=== PATIENT | female | born 2005 | race African-American/Black ===

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

== ENCOUNTER 2024-10-30 14:30 | Outpatient (REF) | payer OTHER, SELFPAY ==
[2024-10-31 11:34] LABS: Bacterial Vaginosis PCR NEGATIVE (Negative); Candida Group PCR DETECTED (Not Detect); Candida glab krusei PCR NOT DETECTED (Not Detect); Trichomonas vaginalis PCR NOT DETECTED (Not Detect)
[2024-10-31 12:19] LABS: CT PCR NOT DETECTED (Not Detect.); NG PCR NOT DETECTED (Not Detect.)
== END 2024-10-30 14:31 | disposition home or self-care (01) ==
LOC: HO.LNP 14:30
PROVIDERS: Visit Provider Advanced Practice Midwife
DX: Z01.419 Encounter for gynecological examination (general) (routine) without abnormal findings (principal); Z20.2 Contact with and (suspected) exposure to infections with a predominantly sexual mode of transmission
CPT/HCPCS: 81515; 87491; 87591; 99395; 99459

== ENCOUNTER 2024-10-30 14:30 | Outpatient (AMB) | payer OTHER, SELFPAY ==
--- NOTE | 2024-10-30 14:30 | MHC.OFFVIS ---
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 Has a Nexplanon device, due for an exchange in February. Currently is sexually active. She denies vaginal itching and irritation. STI screening offered; she accepts, declines blood work. She tries to eat healthy and stays active with exercise. Denies family history of breast, ovarian or colon cancer. [facility] Medical History Postcoital bleeding Irregular menses No known problems Surgical History No pertinent past surgical history Family History Mother No problems noted. Father Asthma Maternal Grandfather Diabetes Maternal Grandmother Cardiac disease High blood pressure Sister No problems noted. Brother Asthma Social History (Updated 10/30/24 @ 14:58 by Eugenia Doty CNM) Household Members: Family Both parents involved: Yes Caregiver staying overnight: No Housing: Apartment Are you a primary child care to a significant other at home: No Do you presently have visiting nurse or other home services: No 75 years or older and lives alone: No Alcohol intake: current Alcohol intake frequency: holidays/special occasions only Patient Tobacco Use Status: Never used Tobacco Current occupation: [employer] Sexual orientation: Straight/Heterosexual Gender identity: Female Cognitive needs: No Hearing needs: No Vision needs: No Female Reproductive History Menstrual Age of Menarche: 10 control method: implanted (Nexplanon 03/07/22) Total pregnancies: 0 Review of Systems Const All systems reviewed & are unremarkable except as noted in HPI and below Reports as per HPI Eyes Reports no additional complaints ENT Reports no additional complaints Card Reports no additional complaints Resp Reports no additional complaints GI Reports as per HPI and Reports no additional complaints Reports as per HPI Musc Reports no additional complaints Skin/Breast Reports as per HPI Neuro Reports no additional complaints Psych Reports no additional complaints Endo Reports no additional complaints Tereso/Lymph Reports no additional complaints Aller/Immun Reports no additional complaints Physical Exam Vital Signs: Last Vital Signs BP 90/60 10/30/24 14:31 BMI result Body Mass Index 19.6 Const General: cooperative, healthy appearing, no acute distress, well developed and alert Orientation/consciousness: patient oriented x3 HEENT Head: Yes normal to inspection Eyes General: appearance normal, both eyes and all related structures Neck Neck: Yes normal visual inspection Thyroid: Thyroid normal Chest Chest palpation & inspection: normal inspection of the chest and other (no puckering, dimpling, peau de orange, retraction, discharge, masses) Breast/axilla inspection: normal inspection of the breasts Breast/axilla palpation: normal palpation of the breasts Resp Effort & Inspection: normal respiratory effort GI Inspection: Yes normal to inspection Palpation (GI): Soft to palpation Rectal Exam - Female: deferred General: Yes bladder normal to palpation External Female Exam: normal external appearance and normal appearance of the urethra Speculum Exam - Vagina: normal appearance of the vagina, normal palpation and normal vaginal discharge Speculum Exam - Cervix: normal appearance of the cervix and normal palpation Bimanual exam- vagina & uterus: normal bimanual exam, normal palpation, uterine size normal, bladder normal to palpation, normal palpation and non-tender Bimanual Exam- Adnexa, other: no masses Skin General skin exam: no rashes or lesions noted Rashes: no rashes Neuro General: patient oriented x3 Cognition (Neuro): normal cognition Extrem General: Yes normal to inspection Psych Attitude: cooperative Thought process: Normal thought process present Assessment & Plan Assessment & Plan (1) Encounter for well woman exam with routine gynecological exam: Code(s): Z01.419 - Encounter for gynecological examination (general) (routine) without abnormal findings Category: Medical Plan Discussed: Current recommendations for pap smears per ASCCP guidelines. Breast awareness and periodic breast exams. Maintain a healthy lifestyle including a well balanced diet and routine exercise. Use condoms for STI prevention. GC chlamydia and BV panel obtained. Sign for prior authorization for another Nexplanon, and scheduled exchange appointment. Patient verbalizes understanding and agrees to the plan of care. She was given opportunity to ask questions and all questions were answered to the best of my ability. RTO in one year for annual multiple spindle screw machine operator examination. This note is constructed using voice recognition software. While every effort has been made to ensure accuracy, cloth winding supervisor errors may have been included. Coding Level of Care Code Est Pt Prev Care 18-39y(75945) Diagnoses Encounter for well woman exam with routine gynecological exam Z01.419
[2024-10-30 14:31] VITALS: BP 90/60; BMI 19.6
== END 2024-10-30 15:00 | disposition home or self-care (01) ==
PROVIDERS: Visit Provider Advanced Practice Midwife
DX: Z01.419 Encounter for gynecological examination (general) (routine) without abnormal findings (principal)
CPT/HCPCS: 99395; 99459

== ENCOUNTER 2024-10-30 15:07 | Outpatient (REF) | payer OTHER, SELFPAY | END 2024-10-30 15:08 | disposition home or self-care (01) | LOC: HO.LAB 15:07 | PROVIDERS: Visit Provider Advanced Practice Midwife | DX: Z13.89 Encounter for screening for other disorder (principal) ==

== ENCOUNTER 2025-03-04 09:53 | Outpatient (AMB) | payer OTHER, SELFPAY ==
--- NOTE | 2025-03-04 09:59 | MHC.OFFVIS ---
Vital Signs 03/04/25 10:00 Height 5 ft 2 in Weight 112 lb BMI 20.5 BP 110/70 Intake Visit Reasons: Nexplanon exchange Docent Coordinator: Docent Coordinator Present (Claire) Accompanied by: Significant Other Allergies Penicillins [PENICILLINS] Allergy (Unknown, Verified 03/04/25 09:59) RASH Is last menstrual period known: Yes HPI Comments Details: Patient is here today for a Nexplanon exchange accompanied by her partner, Stevie. She is on time for the exchange, but has reconsidered and wants to not have the Nexplanon placed as she prefers to see how her body responds without hormones. She is also concerned if she has any infertility issues. [facility] Medical History (Updated 03/04/25 @ 10:34 by Eugenia Doty CNM) Nexplanon removal Postcoital bleeding Irregular menses No known problems Surgical History No pertinent past surgical history Family History Mother No problems noted. Father Asthma Maternal Grandfather Diabetes Maternal Grandmother Cardiac disease High blood pressure Sister No problems noted. Brother Asthma Social History (Updated 10/30/24 @ 14:58 by Eugenia Doty CNM) Household Members: Family Both parents involved: Yes Caregiver staying overnight: No Housing: Apartment Are you a primary home health care physician to a significant other at home: No Do you presently have visiting nurse or other home services: No 75 years or older and lives alone: No Alcohol intake: current Alcohol intake frequency: holidays/special occasions only Patient Tobacco Use Status: Never used Tobacco Current occupation: [employer] Sexual orientation: Straight/Heterosexual Gender identity: Female Cognitive needs: No Hearing needs: No Vision needs: No Female Reproductive History Menstrual Age of Menarche: 10 Review of Systems Const All systems reviewed & are unremarkable except as noted in HPI and below Endo Reports no additional complaints Physical Exam Vital Signs: Last Vital Signs BP 110/70 03/04/25 10:00 BMI result Body Mass Index 20.5 Const General: cooperative, healthy appearing and no acute distress Extrem Other: Implant palpable left upper inner arm Psych Appearance: well kempt Attitude: cooperative Thought process: Normal thought process present Office Procedures Contraception Insert/Removal Details Details: Nexplanon Removal Procedure Nexplanon Removal Counseling: The patient was counseled regarding Nexplanon removal procedure risks for: pain, infection bleeding, bruising , swelling scarring, injury to nerves, blood vessels, and surrounding tissue. ?All questions were answered. ?The patient has signed the consent form and desires to proceed with the procedure. Nexplanon Removal Procedure: The patient was placed in a supine position with her non dominant left hand resting under her head. The insertion site was located: 8-10cm from the medial epicondyle notch of the humerus, posterior to the sulcus, between the triceps and biceps muscle. The area of the ?implant was identified and the distal tip located. This area was cleansed with an alcohol prep and 1 ml of 1% Lidocaine on a 25 gauge needle and syringe was utilized for adequate anesthesia to the insertion site. After ascertaining adequate anesthesia, the area was prepped with Betadine solution. The skin over the distal tip was incised with a #11 blade scalpel and the capsule was located and entered freeing the implant from the canal. The implant was removed with a gentle tug using a mosquito clamp and removed intact. Direct pressure was applied to the insertion site for hemostasis, minimal bleeding was observed. Steri strips, Tegaderm covering, gauze pads, and Kyle wrap dressing were secured with paper tape. Nexplanon Removal Post Care Instructions: You may expect mild tenderness, swelling, and bruising from the area. If no allergies, you may use a mild over the counter analgesic like Tylenol or Advil (follow the manufacturers recommendations on dosing and frequency of use). Call the office if any symptoms and including: fever (over 100.4), flu like symptoms, signs of infection-redness, pus drainage, pain (beyond usual healing). Keep the pressure dressing on and clean and dry for 24 hours, then remove it. You may take the steri strips and Tegaderm off in 5-7 days, or sooner if peeling off on its own. The patient tolerated the procedure well and left the office in good condition. This note is constructed using voice recognition software. ?While every effort has been made to ensure accuracy, operations asst errors may have been included. ? 64119 - Removal Results AMB Test Urine AMB Test Urine Negative Last Edit by CESAR Asif on 03/04/25 10:04 Results Reviewed Results Reviewed: Laboratory Last Values [facility] Negative 03/04/25 10:04 Assessment & Plan Assessment & Plan (1) Nexplanon removal: Code(s): Z30.46 - Encounter for surveillance of implantable subdermal contraceptive Category: Medical Plan See procedure notes. Counseled: regarding contraception options, and reviewed [facility] efficacy chart. She prefers to use condoms, and we will monitor her cycle return. Advised to use a cycle tianna. If any late or missed menses to do a home test than follow up in the office. Return to the office if desires to have Nexplanon replaced or another alternative control option. The patient expressed understanding and agreement with the plan of care. All of her questions and concerns were addressed to the best of my ability. This note is constructed using voice recognition software. While every effort has been made to ensure accuracy, operations asst errors may have been included. Orders: Orders AMB HCG Urine Test Today Z32.02 - Encounter for test, result negative Coding Level of Care Code Procedure Only Diagnoses Nexplanon removal Z30.46 CPT Codes Details - Contraception: 73145 - Removal ([id number])
[2025-03-04 10:00] VITALS: BP 110/70; BMI 20.5
--- OUTSIDE RECORDS SUMMARY | 2025-03-04 10:51 | XMS_ITS | Clinical Summary ---
Author Organization [employer] Address [address] [place] [address] Care Team Providers Care Coal Chemist Name Role Phone Unavailable Primary Care Provider Unavailabl e Allergies Active Allergy Reactions Criticality Noted Date Comments Penicillins 12/08/2024 Medications No known medications Encounters Date Type Department Care Team Description 12/08/2024 1:00 PM EST Office Visit [facility] [address] [place] [address] Ana Arreaga, DDS Tooth impaction (Primary Dx) from Last 3 Months Social History Tobacco Use Types Packs/Day Years Used Date Smoking Tobacco: Never Passive Smoke Exposure: Never Smokeless Tobacco: Never Tobacco Cessation:Counseling Given: No Alcohol Use Standard Drinks/Week Comments Never 0 (1 standard drink = 0.6 oz pur e alcohol) Comments Unknown Sex and Gender Information Value Date Recorded Sex Assigned at Female 12/08/2024 10:03 AM EST Legal Sex Female 10:01 AM EST Gender Identity Female 12/08/2024 10:03 AM EST Sexual Orientation Straight 12/08/2024 10 :03 AM EST Last Filed Vital Signs Vital Sign Reading Time Taken Comments Blood Pressure 123/80 12/08/2024 1:17 PM EST Pulse - - Temperature - - Respiratory Rate - - Oxygen Saturation - - Inhaled Oxygen Concentration - - Weight - - Height - - Body Mass Index - - Plan of Treatment Health Maintenance Due Date Last Done Comments Chlamydia and Gonorrhea Screening 2004 Dental Oral Exam 2004 Dental Prophylaxis 2004 Dental X-Ray: Bitewings 2004 Depression Screening 2004 HIV Screening 2004 SDOH Screening 2004 Alcohol/Substance Use Screening 2016 Family Planning (PISQ) 2019 HPV Vaccines (1 - 3-dose series) 2019 Hepatitis C Screening 2022 DTaP/Tdap/Td Vaccines (1 - Tdap) 2023 Hepatitis B Vaccines (1 of 3 - 19+ 3-dose series) 2023 COVID-19 Vaccine (1 - 2023-2 5 season) 2024 Influenza Vaccine (#1) 2024 Tobacco Screening 12/08/2025 12/08/2024 Dental X-Ray: Full Mouth 12/09/2027 12/08/2024 Zoster Vaccines (1 of 2) 2054 RSV Patients and Pa tients Aged 60 years or older (1 - 1-dose 75+ series) 2079 HIB Vaccines Aged Out No longer eligi ble based on patient's age to complete this topic Hepatitis A Vaccines Aged Out No long er eligible based on patient's age to complete this topic IPV Vaccines Aged Out No longer eligi ble based on patient's age to complete this topic Meningococcal Vaccine Aged Out No ritika shivani eligible based on patient's age to complete this topic Pneumococcal Vaccine: Pediat rics (0 to 5 Years) and At-Risk Patients (6 to 49) Years) Aged Out No longer elig ible based on patient's age to complete this topic RSV under 20 months Aged Out No longe r eligible based on patient's age to complete this topic Rotavirus Vaccines Aged Out No longer eligible based on patient's age to complete this topic Procedures Procedure Name Priority Date/Time Associated Diagnosis Comments CASE PRESENTATION, DETAILED AND EXTENSIVE TREATMENT PLANNING Routine 12/08/2024 1:00 PM EST Tooth impaction PANORAMIC RADIOGRAPHIC IMAGE Routine 12/08/2024 1:00 PM EST Tooth impaction PALLIATIVE (EMERGENCY) TREATMENT OF DENTAL PAIN - MINOR PROCEDURE Routine 12/08/2024 1:00 PM EST Tooth impaction from Last 3 Months Insurance DENTAL - HSN PARTIAL (MEDICAID)
== END 2025-03-04 12:47 | disposition home or self-care (01) ==
LOC: HO.HWS 09:53
PROVIDERS: Visit Provider Advanced Practice Midwife
DX: Z30.46 Encounter for surveillance of implantable subdermal contraceptive (principal); Z32.02 Encounter for pregnancy test, result negative
CPT/HCPCS: 11982

== ENCOUNTER → 2025-03-04 09:53 | Outpatient (BNVA) | payer OTHER, SELFPAY | PROVIDERS: Visit Provider Advanced Practice Midwife | DX: Z30.46 Encounter for surveillance of implantable subdermal contraceptive (principal) | CPT/HCPCS: 11982; 81025 ==

== ENCOUNTER 2025-04-19 18:33 | Emergency (ER) | payer SELFPAY ==
--- NOTE | ~2025-04-19 | XR_ITS ---
CLINICAL HISTORY: Pneumonia? 1 view chest x-ray Comparison: None provided Findings: No consolidation or effusion. Heart size is normal. No acute fracture. IMPRESSION: 1. No acute findings. This document has been electronically signed by: Juan A Chandler MD on 04/19/2025 19:56:48
[2025-04-19 19:20] VITALS: BP 115/64; PULSE 85; RESP 18; TEMP 37.3; O2SAT 99; BMI 20.3
--- NOTE | 2025-04-19 19:24 | ED.GENADULT ---
HPI - General Adult General Chief complaint: Upper Respiratory Symptoms Stated complaint: cough,body aches headache Time Seen by Provider: 04/19/25 19:24 Source: patient Mode of arrival: ambulatory Limitations: no limitations History of Present Illness ED Provider: Abelardo Reddy HPI narrative: 19-year-old female presents to the ED for cough, bodyaches, sore throat, and stuffy nose and headache. Patient denies any chest pain, shortness of breath, weakness, or dizziness. Related Data Home Medications ?Medication ?Instructions ?Recorded ?Confirmed etonogestrel 68 mg subdermal subdermal DAILY 04/11/22 11/23/22 implant (Nexplanon) Previous Rx's ?Medication ?Instructions ?Recorded acetaminophen 500 mg tablet 500 mg PO Q6H PRN fever or pain 07/16/23 (Tylenol Extra Strength) #14 tabs benzonatate 200 mg capsule 200 mg PO TID PRN cough #15 caps 04/19/25 Allergies Allergy/AdvReac Type Severity Reaction Status Date / Time Penicillins (PENICILLINS) Allergy Unknown RASH Verified 04/19/25 19:23 Review of Systems Review of Systems: sore throat, stuffy nose, bodyaches, congesiton Yes all other systems are reviewed and are negative [facility] Past Medical History Medical History (Updated 04/20/25 @ 00:01 by Pito Ring) Nexplanon removal Postcoital bleeding Irregular menses No known problems Surgical History No pertinent past surgical history Family History Family History Mother No problems noted. Father Asthma Maternal Grandfather Diabetes Maternal Grandmother Cardiac disease High blood pressure Sister No problems noted. Brother Asthma Social History Social History (Updated 10/30/24 @ 14:58 by Eugenia Doty CNM) Household Members: Family Housing: Apartment Are you a primary prompt care rn to a significant other at home: No Do you presently have visiting nurse or other home services: No Alcohol intake: current Alcohol intake frequency: holidays/special occasions only Patient Tobacco Use Status: Never used Tobacco Advance Directives: No Advance Directives Information Provided: No Do you have a plan to hurt others: No Plan Current occupation: [employer] Sexual orientation: Straight/Heterosexual Gender identity: Female Cognitive needs: No Hearing needs: No Vision needs: No Physical Exam ED Vital Signs: Vital Signs - 24 hr 04/19/25 19:20 04/19/25 21:06 Temperature 99.2 F 99.2 F Pulse Rate 85 85 Respiratory Rate 18 18 Blood Pressure 115/64 115/64 Pulse Oximetry 99 99 Oxygen Delivery Method Room Air Room Air BMI result Body Mass Index 20.3 Const General: cooperative, healthy appearing, comfortable, no acute distress, well developed, alert, awake and Physically active Orientation/consciousness: patient oriented x3 HENMT Head: Yes normal to inspection, Yes No palpable skull fracture present, Yes normocephalic and Yes atraumatic Ears: hearing grossly normal bilaterally, external ears normal, TM's normal bilaterally, TM normal on the right, TM normal on the left, EAC's normal, mastoids normal and no periauricular adenopathy Throat: Yes posterior oropharynx normal, Yes tonsils normal and Yes uvula midline Eyes General: appearance normal, both eyes and all related structures Neck Neck: Yes normal visual inspection, Yes full ROM, Yes no lymphadenopathy, Yes no meningeal signs, Yes trachea midline, Yes supple, No anterior neck swelling and No tender Chest Chest palpation & inspection: normal inspection of the chest and normal palpation of entire chest wall Resp Effort & Inspection: normal respiratory effort and able to speak in complete sentences Auscultation: clear to auscultation bilaterally Cardio Jugular venous distension: no JVD Heart sounds: S1 normal heart sound present and S2 normal heart sound present GI Inspection: Yes normal to inspection Palpation (GI): Soft to palpation, not firm, nontender, no guarding and not rigid General: Yes no CVA tenderness Back/Spine/Pelvis Back: no CVA tenderness and No Jhaveri-Mccall sign present Skin General skin exam: no rashes or lesions noted, elasticity normal and turgor normal Neuro General: patient oriented x3, gait normal, tone normal, moves all extremities, Normal light touch and pain sensation, no meningeal signs, no focal motor deficits, CN's II-XI intact bilaterally and normal sensation to monofilament Extrem General: Yes normal to inspection, Yes full ROM and Yes capillary refill normal Psych Appearance: grossly normal, well kempt and not disheveled Course Course Course Narrative: RME: 19-year-old female presents to ED for URI symptoms consisting of sore throat, cough, congestion, body aches, and chills. Patient well-appearing. Vital signs stable. SARs strep x-ray ordered. Medical Decision Making Medical Decision Making [facility] Narrative: 19-year-old female presents to ED for URI symptoms suggestive of coughing, nasal congestion, sore throat, stuffy nose and body aches. Patient COVID influenza RSV strep chest x-ray came back normal. Not suspecting PE, myocarditis, pericarditis, respiratory failure, PE, peritonsillar abscess, retropharyngeal abscess, Alli's angina, or any other life-threatening etiology. Patient explained worrisome signs and informed to return to the ED immediately. Differential Diagnosis Differential Diagnoses: The differential diagnosis associated with the presentation includes (Pneumonia, COVID strep influenza) Admission/Observation Consideration of admission/observation: Escalation of care including admission/observation considered Lab Data [facility] Lab Attestation statement: I reviewed the patient's lab results. Labs: Lab Results 04/19/25 Range/Units 19:48 Influenza Type A (PCR) NEGATIVE (Negative) Influenza Type B (PCR) NEGATIVE (Negative) RSV RNA Qual (PCR) NEGATIVE (Negative) SARS-CoV-2 RNA (RT-PCR) NEGATIVE (Negative) S. pyogenes GrpA DOMINGO Negative (Negative) Independent Historian Clinical information obtained from an independent historian. History obtained from or confirmed by: Other (patient) Prescription Management I considered prescription management with: Other (coughing medication) Discharge Plan Discharge Clinical Impression: Upper respiratory infection Patient Disposition: Home, Self-Care Instructions: Upper Respiratory Infection (ED) Additional Instructions: Recommend follow-up with your primary care provider. COVID influenza RSV strep and chest x-ray came back negative. Return to the ED immediately for any coughing up blood, chest pain, shortness of breath, neck swelling, drooling, change in voice, abdominal pain, nausea, vomiting, weakness, or any other concerning symptoms. Prescriptions: New benzonatate 200 mg capsule 200 mg PO TID PRN (Reason: cough) Qty: 15 0RF No Action acetaminophen [Tylenol Extra Strength] 500 mg tablet 500 mg PO Q6H PRN (Reason: fever or pain) Qty: 14 0RF Nexplanon 68 mg implant subdermal DAILY Referrals: [facility] [Provider Group, Internal Medicine] - 2 days Referral Note: URI Stand Alone Forms: Work/School Release Interventions: ED Discharge Assessment Last Done: 04/19/25 21:06 Discharge Date/Time: 04/19/25 21:06 Print Language: Portuguese
[2025-04-19 20:25] LABS: IDNOW Serial# 16C4AD1C; Strep A Nucleic Acid Negative (Negative)
[2025-04-19 20:35] LABS: Influenza A PCR NEGATIVE (Negative); Influenza B PCR NEGATIVE (Negative); Resp Syncy Virus RNA Qual PCR NEGATIVE (Negative); SARS COV2 PCR INHOUSE NEGATIVE (Negative)
--- OUTSIDE RECORDS SUMMARY | 2025-04-19 20:43 | XMS_ITS | Clinical Summary ---
Author Organization [employer] Address [address] [place] [address] Care Team Providers Care Epic Interface Analyst Name Role Phone Unavailable Primary Care Provider Unavailabl e Allergies Active Allergy Reactions Criticality Noted Date Comments Penicillins 12/08/2024 Medications No known medications Social History Tobacco Use Types Packs/Day Years [...] 2004 HIV Screening 2004 SDOH Screening 2004 Disability Screening 2004 Alcohol/Substance Use Screening 2016 Family Planning (PISQ) 2019 HPV Vaccines (1 - 3-dose series) 2019 Meningococcal B Vaccine (1 o f 2 - Standard) 2020 Hepatitis C Screening 2022 DTaP/Tdap/Td Vaccines (1 - Tdap) 2023 Hepatitis B Vaccines (1 of 3 - 19+ 3-dose series) 2023 COVID-19 Vaccine (1 - 2023-2 5 season) 2024 Influenza Vaccine (Season Ended) 2025 Tobacco Screening 12/08/2025 12/08/2024 Dental X-Ray: Full [...] Years) and At-Risk Patients (6 to 49) Years Aged Out No longer eligi ble based on patient's age to complete this topic RSV under 20 months Aged Out No longe r eligible based on patient's age to complete this topic Rotavirus Vaccines Aged Out No longer eligible based on patient's age to complete this topic Procedures Procedure Name Priority Date/Time Associated Diagnosis Comments PANORAMIC RADIOGRAPHIC IMAGE Routine 12/08/2024 1:00 PM EST Tooth impaction from Last 3 Months or Most Recently Relevant to Health Maintenance Insurance DENTAL - HSN PARTIAL (MEDICAID)
[2025-04-19 21:06] VITALS: BP 115/64; PULSE 85; RESP 18; TEMP 37.3; O2SAT 99
== END 2025-04-19 21:06 | disposition home or self-care (01) ==
PROVIDERS: Physician Assistant; Emergency Provider Emergency Medicine Emergency Medical Services
DX: J06.9 Acute upper respiratory infection, unspecified (principal); R05.9 Cough, unspecified; R51.9 Headache, unspecified; M79.10 Myalgia, unspecified site; Z03.818 Encounter for observation for suspected exposure to other biological agents ruled out; Z79.899 Other long term (current) drug therapy
CPT/HCPCS: 0241U; 71045; 87651; 99282; 99283

== ENCOUNTER → 2025-04-19 19:23 | Outpatient (BNV) | payer OTHER, SELFPAY | PROVIDERS: Emergency Provider Emergency Medicine Emergency Medical Services; Visit Provider Radiology Diagnostic Radiology | DX: R06.00 Dyspnea, unspecified (principal) | CPT/HCPCS: 71045 ==

== ENCOUNTER 2025-09-10 13:08 | Outpatient (AMB) | payer OTHER, SELFPAY ==
--- NOTE | 2025-09-10 13:10 | MHC.OFFVIS ---
Vital Signs 09/10/25 13:14 Height 5 ft 1 in Weight 106 lb BMI 20.0 BP 100/60 Blood Pressure Location Rt brachial Position Sitting Intake Visit Reasons: control consult Intake Note: Wants to start control. Has had nexplanon and the OCP before. Precision Lens Polisher Required: No Information Interpreted: non-clinical & clinical Public Health Policy Analyst: Public Health Policy Analyst Present Accompanied by: Self / Same As Patient Allergies Penicillins (PENICILLINS) Allergy (Unknown, Verified 09/10/25 13:16) RASH Medication List - Last Reconciled 09/10/25 by Jessie Barrera LPN acetaminophen (Tylenol Extra Strength) 500 mg PO Q6H PRN benzonatate 200 mg PO TID PRN Is last menstrual period known: Yes Last menstrual period: 09/02/25 Patient : No Do you need a note to return to daycare/school/sports/work: No HPI Comments Details: Patient is here today for control consult. Currently using condoms. LMP 09/02/2025. UPT is negative. Cycles are regular x 4-5d. Heavy with cramping for 1-2d. Ibuprofen helped. She denies any contraindications to control such as: migraines with aura, history of DVT or pulmonary emboli, high blood pressure, liver disease, thrombolic disorders, Lupus, +INGRID, breast cancer, or smoking. [facility] Medical History No known problems Surgical History No pertinent past surgical history Family History Mother No problems noted. Father Asthma Maternal Grandfather Diabetes Maternal Grandmother Cardiac disease High blood pressure Sister No problems noted. Brother Asthma Social History Household Members: Family Both parents involved: Yes Caregiver staying overnight: No Housing: Apartment Are you a primary healthcare liaison to a significant other at home: No Do you presently have visiting nurse or other home services: No 75 years or older and lives alone: No Alcohol intake: current Alcohol intake frequency: holidays/special occasions only Patient Tobacco Use Status: Never used Tobacco Patient : No Current occupation: [employer] Sexual orientation: Straight/Heterosexual Gender identity: Female Cognitive needs: No Hearing needs: No Vision needs: No Female Reproductive History Menstrual Age of Menarche: 10 Date of last menstrual period: 09/02/25 control method: condoms Total pregnancies: 0 Number of Living Children: 0 Review of Systems Const All systems reviewed & are unremarkable except as noted in HPI and below Endo Reports no additional complaints Physical Exam Vital Signs: Last Vital Signs BP 100/60 09/10/25 13:14 BMI result Body Mass Index 20.0 Const General: cooperative, healthy appearing and no acute distress Psych Appearance: well kempt Attitude: cooperative Thought process: Normal thought process present Results AMB Test Urine AMB Test Urine Negative Last Edit by Jessie Barrera LPN on 09/10/25 13:26 Assessment & Plan Assessment & Plan (1) BCP ( control pills) initiation: Code(s): Z30.011 - Encounter for initial prescription of contraceptive pills Plan Discussed: control options with the use of CDC efficacy guidelines. She opts for the control pill. Control Counseling Use and side effects of control: Instructed to start the pill within the first 5 days of the menstrual period. Recommended to take pill at same time every day and with food to prevent stomach upset. Switch to bedtime intake with food if still experiencing nausea. Consider setting the cell phone for alerts as a reminder to take the pill at the same time. Use a back up method (condoms or abstinence if needed) if any late or missed doses until the end of the pill pack. Take the dose as soon as possible, and take your regular pill on time. If you miss the pill often, then consider another option of control. Always use condoms for STI prevention if indicated. Instructed patient to take for at least 3 months the body is acclimated to it. Most side effects go away with time in the first three months. Warnings: go to ED if and loss of vision/blindness, severe headache, chest pain or difficulty breathing, severe abdominal pain, or any pain or swelling in an extremity. Return in 3 months for pill check, or sooner if any concerns. All of her questions and concerns were addressed to the best of my ability and shared decision making. She is agreeable to plan of care. Orders: Orders AMB HCG Urine Test Today Z32.02 - Encounter for test, result negative Medications: New levonorgestrel-ethinyl estrad 0.15 mg-30 mcg (91) (Parmjit) 1 tab PO DAILY 91 ea 0RF Coding Level of Care Code Est Pt Level 3 (30529) Diagnoses BCP ( control pills) initiation Z30.011
[2025-09-10 13:14] VITALS: BP 100/60
--- OUTSIDE RECORDS SUMMARY | 2025-09-10 16:26 | XMS_ITS | Encounter Summary ---
Author Organization [facility] Address [address] [place] [id number] Phone Care Team Providers Care Unit Educator Name Role Phone Unavailable Primary Care Provider Unavailabl e Encounter Details Date Type Department Care Team (Late st Contact Info) Description 12/28/2010 Documentation [facility] Family Medicine [address] [place] [address] Family Medicine, Physician [facility] [place] [address] Social History Tobacco Use Types Packs/Day Years Used Date Smoking Tobacco: Never Assessed Comments Unknown Sex and Gender Information Value Date Recorded Sex Assigned at Not on file Legal Sex Female 4:37 PM EDT Gender Identity Not on file Sexual Orientation Not on file documented as of this encounter Plan of Treatment Not on file documented as of this encounter Visit Diagnoses Not on filedocumented in this encounter
--- OUTSIDE RECORDS SUMMARY | 2025-09-10 16:26 | XMS_ITS | Encounter Summary ---
Author Organization [facility] Address [address] [place] [id number] Phone Care Team Providers Care Shop Welder Name Role Phone Unavailable Primary Care Provider Unavailabl e Encounter Details Date Type Department Care Team (Late st Contact Info) Description 08/01/2011 Documentation [facility] [place] Family Medicine [address] [place] [address] Family Medicine, Physician [facility] [place] [address] Social History Tobacco Use Types [...]
--- OUTSIDE RECORDS SUMMARY | 2025-09-10 16:26 | XMS_ITS | Clinical Summary ---
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 Role Phone Unavailable Primary Care Provider Unavailabl e Immunizations Immunization Administration Dates Next Due DTaP / Hep B / IPV 04/18/2005,02/27/2005, 005 DTaP 5 12/01/2008,04/17/2006 Hep B, ped/adol 2004 Hib (HbOC) 04/18/2005,02/27/2005,2004 Hib (PRP-T) 01/16/2006 IPV 12/01/2008 Influenza Split 01/10/2011 Influenza, injectable, trivalent 12/01/2008,09/29 MMR 12/01/2008,10/24/2005 Pneumococcal Conjugate 01/16/2006,04/18/2005,11/2004,2004 Varicella 12/01/2008,10/24/2005 Family History Relation Name Status Comments Father Alive Father: Asthma Maternal Grandmother Materna l grandmother: Hyperlipidemia Mother Alive Mother: strabis mus/lazy eye Paternal Grandfather Paterna l grandfather: Diabetes mellitus Social History Tobacco Use Types Packs/Day Years Used Date Smoking Tobacco: Never Assessed Comments Unknown Sex and Gender Information Value Date Recorded Sex Assigned at Not on file Legal Sex Female 4:37 PM EDT Gender Identity Not on file Sexual Orientation Not on file Last Filed Vital Signs Vital Sign Reading Time Taken Comments Blood Pressure 80/40 01/10/2011 12:00 AM EDT Pulse - - Temperature 36.7 C (98.1 F) 01/30/2011 12:00 AM EDT Respiratory Rate - - Oxygen Saturation - - Inhaled Oxygen Concentration - - Weight 18.4 kg (40 lb 8 oz) 01/30/2011 12:00 AM EDT Height 116.8 cm (3' 10 ) 01/10/2011 12:00 AM EDT Body Mass Index - - Plan of Treatment Health Maintenance Due Date Last Done Comments DTaP,Tdap,and Td Vaccines (6 - Tdap) 2015 12/01/2008, 04/17/2006, 04/18/2005, Additional history exists HPV Vaccines (1 - 3-dose series) 2019 Men B Vaccine (1 of 2 - Standard) 2020 Influenza Vaccines (#1) 2025 01/11/20 11, 12/01/2008, 10/23/2006 COVID-19 Vaccine ( - season) 2025 Hepatitis B Vaccines Completed 04/18/2005, 02/27/2005, 2004, Additional history exists HIB Vaccines Completed 01/16/2006, 03/30, 02/27/2005, Additional history exists Pneumococcal Vaccine Completed 01/16/2006, 04/18/2005, 02/27/2005, Additional history exists IPV Vaccines Completed 12/01/2008, 03/30, 02/27/2005, Additional history exists MMR Vaccines Completed 12/01/2008, 10/24/2005 Varicella Vaccines Completed 12/01/2008, 10/24/2005 Hepatitis A Vaccines Aged Out No long er eligible based on patient's age to complete this topic Meningococcal Vaccine Aged Out No ritika shivani eligible based on patient's age to complete this topic
--- OUTSIDE RECORDS SUMMARY | 2025-09-10 16:26 | XMS_ITS | Clinical Summary ---
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
--- OUTSIDE RECORDS SUMMARY | 2025-09-10 16:26 | XMS_ITS | Encounter Summary ---
Author Organization [facility] Address [address] [place] [phone] Phone Care Team Providers Care Order Picker Name Role Phone Unavailable Primary Care Provider Unavailabl e Encounter Details Date Type Department Care Team ([facility] Contact Info) Description 06/14/2017 Conversion Encounter [facility] - [address] [id number] Social History Tobacco Use Types Packs/Day Years [...]
== END 2025-09-10 14:55 | disposition home or self-care (01) ==
LOC: HO.HWS 13:09
PROVIDERS: Visit Provider Advanced Practice Midwife
DX: Z30.011 Encounter for initial prescription of contraceptive pills (principal); Z32.02 Encounter for pregnancy test, result negative
CPT/HCPCS: 99213

== ENCOUNTER → 2025-09-10 13:08 | Outpatient (BNVA) | payer OTHER, SELFPAY | PROVIDERS: Visit Provider Advanced Practice Midwife | DX: Z32.02 Encounter for pregnancy test, result negative (principal) | CPT/HCPCS: 81025 ==